=== PATIENT | female | born 1950 | race Caucasian/White ===

== ENCOUNTER 2023-11-16 06:18 | Day surgery (SDC) | payer OTHER, SELFPAY ==
[2023-11-16 11:14] VITALS: BMI 38.6
[2023-11-16 11:16] VITALS: BP 160/70
[2023-11-16 13:30] VITALS: BP 128/47
[2023-11-16 13:45] VITALS: BP 152/56
== END 2023-11-16 14:25 | disposition home or self-care (01) ==
LOC: GI 06:18
PROVIDERS: ATTENDING PHYSICIAN Internal Medicine Gastroenterology
DX: D12.0 Benign neoplasm of cecum (principal); D12.3 Benign neoplasm of transverse colon; D12.5 Benign neoplasm of sigmoid colon; K63.5 Polyp of colon; K57.30 Diverticulosis of large intestine without perforation or abscess without bleeding; Z86.010 Personal history of colon polyps
CPT/HCPCS: 45385; 45380; 88305

== ENCOUNTER → 2024-05-04 09:53 | Outpatient (REF) | payer OTHER, SELFPAY | LOC: HWWDC 09:53 | PROVIDERS: ATTENDING PHYSICIAN Physician Assistant Medical | DX: Z12.31 Encounter for screening mammogram for malignant neoplasm of breast (principal) | CPT/HCPCS: 77063; 77067 ==

== ENCOUNTER 2025-05-18 12:35 | Emergency (ER) | payer OTHER, SELFPAY ==
[2025-05-18 12:39] VITALS: BP 232/101
[2025-05-18 12:47] VITALS: BMI 44.2
[2025-05-18 13:00] VITALS: BP 218/91
[2025-05-18 14:02] VITALS: BP 203/91
[2025-05-18 14:49] VITALS: BP 168/70
--- NOTE | 2025-05-18 14:51 | ED.GENMED ---
History of Present Illness
General
Chief Complaint: Eye Problems
Time Seen by Provider: 05/18/25 14:06
History of Present Illness
History of Present Illness:
Manjit is a 75-year-old female with past medical history of A-fib on Eliquis, hypertension who presents after feeling a pop in her left eye and subsequently looking mirror to find there was blood. Denies any pain or vision changes. Found to be
hypertensive and route via EMS and here on arrival.
Past History
Past History
ED Past Medical History: Arrthythmia (Paroxysmal atrial fibrillation.), CAD, HTN and Hypercholesterolemia
ED Past Surgical History: Cardiac (PTCA with stent to obtuse marginal June 2018.), Cholecystectomy and Gynecological (Hysteroscopy, D&E December 2018)
Social History
Tobacco: Non-smoker
Personal:
Living: with family
Employment: Retired
Family History
Family History: Other (Noncontributory)
Phy Exam
General Physical Exam
General Presentation: well appearing and no apparent distress
General Skin: warm and dry
General Habitus: normal
General Mental: alert
General Hydration: appears well hydrated
ENT Exam
ENT Exam: EOMI, pharynx normal, neck supple and normocephalic
Eye Exam
Eye Exam: PERRL, EOMI, cornea clear, visual acuity normal and visual jalloh normal
Right 20/: 20
Left 20/: 25
Both 20/: 20
Eyelid Exam: hematoma: Left
Cardiovascular Exam
Cardiovascular Exam: regular rate/rhythm, no edema, no murmur and normal peripheral pulses
Pulmonary Exam
Pulmonary Exam: lungs clear, no respiratory distress, no rales, no crackles, no rhonchi, no stridor, no wheezing and no cough
Gastrointestinal Exam
Gastrointestinal Exam: normal bowel sounds, non tender, soft, no organomegaly, no pulsatile mass and non distended
Neurological Exam
Neurological Exam: alert, oriented x3, no motor deficits and speech normal
Musculoskeletal Exam
Musculoskeletal Exam: full ROM and no edema
Skin Exam
Skin Exam: normal color, warm/dry, no rash and no petechia
Psychiatric Exam
Psychiatric Exam: normal mood/affect
Course
Orders/Labs/Results
Orders:
Orders
05/18/25 14:27
Labetalol HCl [Trandate] 5 mg IV NOW STA
05/18/25 14:32
HydrALAZINE [Apresoline] 5 mg PO NOW STA
Vital Signs
Initial and Last Documented VS:
Initial Vital Signs
Temp Pulse Resp BP Pulse Ox
36.8 C 83 16 232/101 98
05/18/25 12:39 05/18/25 12:39 05/18/25 12:39 05/18/25 12:39 05/18/25 12:39
Last Documented Vital Signs
Temp Pulse Resp BP Pulse Ox
36.8 C 79 16 203/91 95
05/18/25 12:39 05/18/25 14:45 05/18/25 14:45 05/18/25 14:02 05/18/25 14:53
MDM/Problems Addressed
Differential Diagnosis Includes:
Exam consistent with subconjunctival hematoma due to hypertension anticoagulation use. Picture sent to the ophthalmology for visual changes or pain then able to follow-up in the office Tuesday and use lubricating eyedrops. Patient was initially
hypertensive to over 200 systolic on arrival however this was improved to 168 systolic without any intervention. She will follow-up with her primary care provider regarding her hypertension. She is due for her nighttime blood pressure medication 2
hours and will take it as scheduled. Encouraged her to take her blood pressure at home. Return precautions discussed.
*Pulse Oximetry
SaO2: 95
Oxygen Mode of Delivery: Room air
Patient hypoxic: no
*Critical Care Note
Total Time (30-74mins, 75-104mins- exclusive of procedures): Not Applicable
ED Attending Note
-
Portions of this chart may have been created with voice recognition software.� Occasional wrong word or��sound alike� substitutions may have occurred due to the inherent limitations of voice recognition software.
Discharge Plan
Departure
Patient Disposition: Home (Routine Discharge)
Date of Disposition: 05/18/25
Time of Disposition: 14:55
Patient with high blood pressure during this ER visit?: Yes
Discharge Problem:
Hypertension, NEGRO (subconjunctival hemorrhage), Chronic anticoagulation
Instructions: Subconjunctival Hemorrhage, High blood pressure - ED (DC)
Prescriptions:
No Action
enalapril maleate [Vasotec] 20 MG tablet
20 mg PO DAILY
atorvastatin 80 MG tablet
80 mg PO QPM Qty: 90 3RF
clopidogrel 75 MG tablet
75 mg PO DAILY Qty: 90 3RF
furosemide 40 MG tablet
40 mg PO BID
metoprolol succinate 25 MG tablet extended release 24 hr
50 mg PO BID
Eliquis 5 MG tablet
5 mg PO BID
multivitamin Tablet
1 tab PO DAILY
potassium chloride 10 mEq Capsule, Extended Release
10 meq PO DAILY
acetaminophen [Tylenol] 325 mg Tablet
325 mg PO ONCE PRN (Reason: pain)
calcium carbonate [Calcium 500] 500 mg calcium (1,250 mg) Tablet
500 mg PO DAILY
vitamin B complex Tablet
1 tab PO DAILY
loratadine [Claritin] 10 mg Tablet
10 mg PO DAILY PRN (Reason: allergies)
cholecalciferol (vitamin D3) [Vitamin D3] 50 mcg (2,000 unit) Capsule
50 mcg PO DAILY
Multaq 400 mg Tablet
400 mg PO BID
Referrals:
Devante Emery MD [Active, Ophthalmology]
Kate Briggs PA-C [Family Provider, Internal Medicine]
Activity Restrictions/Additional Instructions:
Please call ophthalmology office Tuesday morning to schedule appointment to be seen Tuesday. Use your lubricating eyedrops daily. Please also follow-up with your regular physician regarding your hypertension. As blood pressure was elevated here in
the ER but did not improve without any intervention. Return to the ER if you develop any double vision, pain in your eye, or other vision changes.
Interventions
Interventions:
*Risk Screen - Suicide Last Done: 05/18/25 12:39
*General Assessment Last Done: 05/18/25 12:39
*Neglect/Abuse Screening Last Done: 05/18/25 12:39
*ED COVID-19 Vaccine History Last Done: 05/18/25 12:47
*ED Influenza Vaccine History Last Done: 05/18/25 12:47
[facility] Risk Assessment Tool Last Done: 05/18/25 12:47
Discharge Date and Time
Print Language: KOREAN
--- NOTE | 2025-05-18 14:55 | EDRN ---
BP for apresoline was 168/70. Ashly MCCARTHY said to hold oral hydralazine and pt will be discharged.
== END 2025-05-18 15:11 | disposition home or self-care (01) ==
LOC: EMR 12:35
PROVIDERS: EMERGENCY PHYSICIAN Student in an Organized Health Care Education/Training Program; FAMILY PHYSICIAN Physician Assistant Medical
DX: I10 Essential (primary) hypertension (principal); H11.32 Conjunctival hemorrhage, left eye; Z79.01 Long term (current) use of anticoagulants; I25.10 Atherosclerotic heart disease of native coronary artery without angina pectoris; I48.0 Paroxysmal atrial fibrillation; E78.00 Pure hypercholesterolemia, unspecified; Z79.02 Long term (current) use of antithrombotics/antiplatelets; Z95.5 Presence of coronary angioplasty implant and graft
CPT/HCPCS: 99283